=== PATIENT | female | born 1930 | race Caucasian/White ===

== ENCOUNTER → 2017-04-24 | Outpatient (CLI) | payer MEDICARE, BC ==
[~2017-04-24] MED LIST: ASPIRIN PO; CHEWABLE ASPIRI81 MG PO; LUMIGAN OP; NORVASC PO; OMEPRAZOLE40 M1 PO; ZOCOR PO
--- NOTE | ~2017-04-24 | TH ---
Unit #: [id number] #: [id number] Patient: JAY KNOTT [id number] [address] [address] [id number] O MR#: [id number] NAME: JAY KNOTT : 1930 SEX: F STUDY DATE/TIME: 04/24/2017 UNIT: [facility] ROOM: STUDY DESCRIPTION: Attending Physician: Hai Ly M.D. Referring Physician: Hai Ly M.D. Primary Care Physician: Justin Moon Jr., M.D. CARDIOLOGY REPORT EXAM Lexiscan Cardiolite stress test, nuclear portion. PROCEDURE Using technetium 99m labeled Cardiolite, rest and stress SPECT images were obtained. Multiple SPECT images were obtained in various views including horizontal and vertical long axis and short axis views of the left ventricle. Images were obtained by gated SPECT method. The patient was administered 11.5 mCi of Cardiolite at rest. Patient was administered 32.7 mCi of Cardiolite after Lexiscan infusion was completed. On the stress images, there is a medium-sized area of moderate decreased isotope activity involving the anteroapical and the anteroseptal wall. The rest images show normal perfusion. Comparing rest and stress images, there is suspicion for a medium-sized area of stress-induced ischemia involving the anteroapical and the anteroseptal wall of the left ventricle. The left ventricular ejection fraction is calculated to be 48%. There is hypokinesis involving the anteroseptal wall. CONCLUSION 1. Suspicion for a medium-sized area of stress-induced ischemia involving the anteroapical and anteroseptal wall of the left ventricle. 2. The left ventricular ejection fraction is calculated to be 48%. 3. There is hypokinesis involving the anteroseptal wall. 4. Abnormal Lexiscan Cardiolite stress test suspicious for coronary artery disease. Clinical correlation is requested. Dictated by... Alyssa Marx TD: 04/24/2017 15:55 JOB #: [id number] Unit #: [id number] #: [id number] Patient: JAY KNOTT CARDIOLOGY REPORT Page 1 of 1 X Carolyn Stroud MD <ELECTRONICALLY SIGNED> 06/20/17 [facility] CARDIOLOGY REPORT
--- NOTE | ~2017-04-24 | ST ---
Unit #: [id number] #: [id number] Patient: JAY KNOTT [id number] [facility]. [place] [address] [facility]. [place], [place] [address] [id number] O MR#: [id number] NAME: JAY KNOTT : 1930 SEX: F STUDY DATE/TIME: 04/24/2017 UNIT: [facility] ROOM: STUDY DESCRIPTION: Attending Physician: Hai Ly M.D. Referring Physician: Hai Ly M.D. Primary Care Physician: Justin Moon Jr., M.D. CARDIOLOGY REPORT EXAM Lexiscan Cardiolite stress test. FINDINGS Baseline EKG: Normal sinus rhythm with ventricular rate 62 beats per minute, left bundle branch block, poor R-wave progression. PROCEDURE Lexiscan is a 4-minute test with Lexiscan being injected within the first minute followed by Cardiolite. EKG during the test was equivocal to baseline, occasional premature ventricular complex, otherwise equivocal. Maximum heart rate response was 100 beats per minute with a maximum blood pressure response of 147/77 mmHg. Cardiolite was injected after Lexiscan within the first minute of the test. Radionuclide tests pending. Please correlate with nuclear images. Dictated by... Lucila AlbertRJorge Luis for Alyssa Marx TD: 04/24/2017 10:24 JOB #: [id number] CARDIOLOGY REPORT Page 1 of 1 X Negar Bonilla APRN CARDIOLOGY REPORT
--- NOTE | ~2017-04-24 | US6 ---
[facility] A Service of [facility] RADIOLOGY TEXT RESULTS PATIENT: JAY KNOTT LOCATION: [facility] : [birth year] UNIT #: [id number] AGE: [address]: Hai Ly MD SEX: F ORDER DR: [id number] [facility] [address] [place], [place] [address] [id number] O MR#: [id number] Acc #: [id number] NAME: JAY KNOTT : 1930 SEX: F STUDY DATE/TIME: 04/24/2017 7:47 UNIT: [facility] ROOM: STUDY DESCRIPTION: US Abdominal Limited Attending Physician: Hai Ly M.D. Referring Physician: Hai Ly M.D. Ordering Physician: Hai Ly M.D. Primary Care Physician: Justin Moon Jr., M.D. MEDICAL IMAGING REPORT This report is preliminary unless electronic signature is present EXAM Ultrasound abdomen limited 04/24/2017. HISTORY Gallstones. Chest pain, right lower, mid lower pain radiates to back. Plus diabetes (no) cholesterol 1 year? Mother cancer equal ovarian cancer 1957, happy OV angioplasty 1995 cyst ML-RUQ? Chest pain for 1 year. TECHNIQUE Real-time ultrasonography of the right upper quadrant performed. The visualized portions of pancreas are unremarkable. Some portions obscured by bowel gas artifact. The liver measures approximately 12.1 cm in greatest length. Normal contour and echotexture. No focal hepatic parenchymal abnormality. Portal vein patent with normal direction of flow. The gallbladder is normal in volume. No gallbladder wall thickening or pericholecystic fluid. Gallbladder wall measures 1.6 mm in thickness. There is no pericholecystic fluid. No well-defined gallstone is seen. There appears to be some sludge in the gallbladder neck. No findings of cholecystitis. The common bile duct measures about 3.8 mm in diameter. The right kidney measures 10.13 cm in greatest length. There is mild renal pelvic splitting, but no brian hydronephrosis. No cystic or solid mass lesion. No renal calculus or perinephric fluid collection. IMPRESSION 1. Liver normal in appearance. 2. The gallbladder contains some sludge in the gallbladder neck, but is otherwise unremarkable. No evidence of gallbladder inflammation and no discrete calculi seen. 3. Mild right renal pelvic splitting. No brian hydronephrosis. Right kidney otherwise unremarkable. 4. Visualized pancreas normal. Some portions of tail obscured by bowel gas artifact. If further pancreatic imaging would assist in management, consider [facility] A Service of [facility] RADIOLOGY TEXT RESULTS PATIENT: JAY KNOTT [id number] : [birth year] UNIT #: [id number] AGE: [address]: Hai Ly MD SEX: F ORDER DR: Dictated by... Justin Cruz M.D. THIS IS AN ELECTRONICALLY VERIFIED REPORT Justin Cruz M.D. at 04/24/2017 6:04 PM TENISHA/nasir TD: 04/24/2017 11:48 JOB #: [id number] MEDICAL IMAGING REPORT Page 1 of 1 COPY
== END | disposition home or self-care (01) ==
LOC: CWCC 07:14
DX: R07.9 Chest pain, unspecified (principal); R53.83 Other fatigue; K80.20 Calculus of gallbladder without cholecystitis without obstruction; R94.39 Abnormal result of other cardiovascular function study
CPT/HCPCS: 76705; 78452; 93017; A9500; J2785

== ENCOUNTER → 2017-04-30 | Outpatient (CLI) | payer MEDICARE, BC ==
[~2017-04-30] VITALS: Ht 162.6 cm; Wt 66.5 kg
--- NOTE | ~2017-04-30 | EKG ---
PATIENT: JAY KNOTT UNIT #: [id number] Ventricular Rate: 66 BPM Atrial Rate: 66 BPM P-R Interval: 166 ms QRS Duration: 148 ms Q-T Interval: 438 ms QTC Calculation(Bezet): 459 ms P Simon: 41 degrees Calculated R Simon: -39 degrees Calculated T Simon: 53 degrees Diagnosis Line: Normal sinus rhythm Diagnosis Line: Left axis deviation Diagnosis Line: Left bundle branch block Diagnosis Line: Abnormal ECG Diagnosis Line: No previous ECGs available Diagnosis Line: Confirmed by RANDAL ESPINOZA MD ([id number]) on 05/01/2017 Diagnosis Line: 7:34:34 PM INTERPRETING MD: OLGA OLIVEIRA
[2017-04-30 08:00] LABS: HEMATOCRIT 40.3 % (35.0-45.0); HEMOGLOBIN 13.8 gm/dL (12.0-16.0); MEAN CELL VOLUME 92.6 FL (83-96); MEAN CORPUSCULAR HEMOGLOBIN 31.8 PG (28-34); MEAN CORPUSCULAR HGB CONC 34.3 g/dL (30-36); MEAN PLATELET VOLUME 7.7 FL (6.5-11.5); RED BLOOD COUNT 4.35 X10e (3.90-5.30); RED CELL DISTRIBUTION WIDTH 13.2 % (11.0-15.5); WHITE BLOOD COUNT 4.3 X10e3 (4.0-10.5)
[2017-04-30 08:13] LABS: PARTIAL THROMBOPLASTIN TIME 25.9 SECONDS (23.5-31.3); PROTHROMBIN TIME (PATIENT) 10.9 SECONDS (10.0-11.7)
[2017-04-30 08:25] LABS: CALCIUM SERUM 9.2 mg/dL (8.4-10.2); GLOM FILT RATE Estimated 51.4 mL/min (>60)
== END | disposition home or self-care (01) ==
LOC: CCVL 07:20
PROVIDERS: Internal Medicine Cardiovascular Disease
DX: I25.118 Atherosclerotic heart disease of native coronary artery with other forms of angina pectoris (principal); I51.9 Heart disease, unspecified; I44.7 Left bundle-branch block, unspecified; R94.39 Abnormal result of other cardiovascular function study; K21.9 Gastro-esophageal reflux disease without esophagitis; E78.5 Hyperlipidemia, unspecified; Z82.49 Family history of ischemic heart disease and other diseases of the circulatory system
CPT/HCPCS: 36415; 80048; 85027; 85610; 85730; 93005; C1769; C1887; C1894; J1644; J2250; J3010